=== PATIENT | female | born 1970 | race African-American/Black ===

== ENCOUNTER 2016-11-28 15:30 | Emergency (ER) | payer OTHER ==
[~2016-11-28] VITALS: Ht 157.5 cm; Wt 107.3 kg
[~2016-11-28 15:30] MED LIST: ALBU17AE27 IH; FLUO-191 PO; FURO40 PO; INSLAN SQ
[2016-11-28 15:47] LABS: GLUCOSE,POINT OF CARE 96 MG/DL (70-110)
[2016-11-28] MEDS ORDERED: HYDROCODONE/ACETAMINOPHEN 5-325 MG TABLET PO ONE (16:30)
[2016-11-28] MEDS ORDERED: METHOCARBAMOL 500 MG TABLET PO ONE (16:30)
[2016-11-28] MEDS ORDERED: KETOROLAC TROMETHAMINE 60 MG/2 ML VIAL IM ONE (16:30)
[2016-11-28 18:40] VITALS: BP 118/71
== END 2016-11-28 18:42 | disposition home or self-care (01) ==
LOC: EMS 15:34
DX: M25.512 Pain in left shoulder (principal); M79.2 Neuralgia and neuritis, unspecified; J45.909 Unspecified asthma, uncomplicated; E11.9 Type 2 diabetes mellitus without complications; I10 Essential (primary) hypertension; Z87.891 Personal history of nicotine dependence; Z79.2 Long term (current) use of antibiotics
CPT/HCPCS: 82962; 96372; 99283; J1885

== ENCOUNTER 2017-07-11 13:30 | Inpatient (IN) | payer OTHER ==
[~2017-07-11] VITALS: Ht 157.5 cm; Wt 107.9 kg
[2017-07-11 13:47] LABS: GLUCOSE,POINT OF CARE 69 MG/DL (70-110)
[2017-07-11] MEDS ORDERED: ALBUTEROL SULFATE 2.5 MG/0.5 ML NEB SOLUTION NEB ONE (14:30)
[2017-07-11] MEDS ORDERED: HYDROCODONE/ACETAMINOPHEN 10-325 MG TABLET PO ONE (14:30)
[2017-07-11] MEDS ORDERED: 0.9% SODIUM CHLORIDE 5 ML NEB SOLUTION NEB ONE (14:42)
[2017-07-11 15:04] LABS: ANION GAP 5 mmol/L (8-16); CALCIUM, TOTAL 8.3 mg/dL (8.8-10.5); CARBON DIOXIDE 26 mmol/L (22-29); CHLORIDE 105 mmol/L (98-107); CREATININE 0.92 mg/dL (0.60-1.30); GLOMERULAR FILTR. RATE CALC > 60 mL/min (>60); GLUCOSE,RANDOM 79 mg/dL (70-110); POTASSIUM 3.9 mmol/L (3.5-5.1); SODIUM SERUM 136 mmol/L (136-145); UREA NITROGEN, BLOOD 9 mg/dL (7-18)
[2017-07-11 15:10] LABS: HEMATOCRIT 26.1 % (36-46); HEMOGLOBIN 7.9 g/dL (12.0-16.0); MEAN CORPUSCULAR HEMOGLOBIN 18.2 pg (26.0-34.0); MEAN CORPUSCULAR HGB CONC 30.1 G/dL (31.0-37.0); MEAN CORPUSCULAR VOLUME 60 fL (80-100); PLATELET COUNT (AUTO) 251 K/uL (150-450); RED BLOOD CELL COUNT(AUTO) 4.32 MIL/uL (4.00-5.20); RED CELL DISTRIBUTION WIDTH 20.2 % (11.5-14.5)
[2017-07-11 15:18] LABS: PROTHROMBIN TIME 10.2 SEC (9.4-11.6)
[2017-07-11 15:27] LABS: ALANINE AMINOTRANSFERASE 32 U/L (12-78); ALBUMIN 3.1 g/dL (3.4-5.0); ALKALINE PHOSPHATASE 87 U/L (46-116); ASPARTATE AMINOTRANSFERASE 33 U/L (15-37); BILIRUBIN,TOTAL 0.2 mg/dL (0.1-1.0); CREATINE KINASE, TOTAL 200 U/L (26-192); TOTAL PROTEIN, SERUM 7.5 g/dL (6.4-8.2)
[2017-07-11 15:32] LABS: B-TYPE NATRIURETIC PEPTIDE 120 pg/mL (0-100)
[2017-07-11 15:48] LABS: CREATINE KINASE MB 0.8 ng/mL (0-5)
[2017-07-11] MEDS ORDERED: MethylPREDNISolone SOD SUCC 125 MG/2 ML VIAL IVP ONE (16:00)
[2017-07-11] MEDS ORDERED: LEVOFLOXACIN 500 MG/D5% WATER 100 ML IV ONE (16:00)
[2017-07-11 16:06] LABS: BAND NEUTROPHILS % (MANUAL) 8 % (1-5); BASOPHILS % (MANUAL) 1 % (0-2); EOSINOPHILS % (MANUAL) 2 % (1-6); LYMPHOCYTES % (MANUAL) 17 % (22-44); MONOCYTES % (MANUAL) 8 % (2-9); PLATELET MORPHOLOGY COMMENT LARGE PLTS PRESENT; SEGMENTED NEUTROPHILS % 64 % (40-70)
[2017-07-11] MEDS ORDERED: 0.9% SODIUM CHLORIDE 10 ML SYRINGE IVP PRN (18:30)
[2017-07-11] MEDS ORDERED: OxyCODONE HCL/ACETAMINOPHEN 5-325 MG TABLET PO PRN (18:30)
[2017-07-11] MEDS ORDERED: HYDROCODONE/ACETAMINOPHEN 5-325 MG TABLET PO PRN (18:30)
[2017-07-11] MEDS ORDERED: ACETAMINOPHEN 325 MG TABLET PO PRN (18:30)
[2017-07-11] MEDS ORDERED: ONDANSETRON HCL 4 MG/2 ML VIAL IVP PRN (18:30)
[2017-07-11 18:36] LABS: % IRON SATURATION 3.1 % (22-44)
[2017-07-11 18:44] LABS: RETICULOCYTE % (AUTO) 1.7 % (0.5-2.3)
[2017-07-11] MEDS ORDERED: INSULIN ASPART 100 UNITS/ML SQ PRN (18:45)
[2017-07-11] MEDS ORDERED: DEXTROSE 50%-WATER 25 GM/50 ML SYRINGE IVP PRN (18:45)
[2017-07-11 19:37] LABS: GLUCOSE,POINT OF CARE 145 MG/DL (70-110)
[2017-07-11 20:04] LABS: HEMOGLOBIN A1C 6.1 % (4.5-6.2)
[2017-07-11 20:06] LABS: C-REACTIVE PROTEIN QUANT 1.9 mg/dL (0.00-0.30)
[2017-07-11 20:30] VITALS: BP 145/60
[2017-07-11] MEDS: IPRATROPIUM BROMIDE 0.5 MG/2.5 ML NEB SOLUTION NEB SCH (20:30)
[2017-07-11] MEDS: ALBUTEROL SULFATE 2.5 MG/0.5 ML NEB SOLUTION NEB SCH (20:30)
[2017-07-11] MEDS: INSULIN GLARGINE,HUM.REC.ANLOG 100 UNITS/ML SQ SCH (20:46)
[2017-07-11] MEDS: INSULIN ASPART 100 UNITS/ML SQ PRN (20:46)
[2017-07-11] MEDS: MethylPREDNISolone SOD SUCC 125 MG/2 ML VIAL IVP SCH (23:26)
[2017-07-11] MEDS: FUROSEMIDE 40 MG TABLET PO SCH (23:27)
[2017-07-11] MEDS: GuaiFENesin SR 600 MG ER TABLET PO SCH (23:27)
[2017-07-11 23:46] VITALS: BP 131/89
[2017-07-12] MEDS ORDERED: PNEUMOCOCCAL VACCINE POLYVALENT 0.5 ML VIAL [PPSV23] IM ONE (01:15)
[2017-07-12] MEDS ORDERED: INFLUENZA VIRUS VACCINE QVS 2017-18 (3YR+)/PF 60 MCG/0.5 ML SYRINGE IM ONE (01:15)
[2017-07-12] MEDS: IPRATROPIUM BROMIDE 0.5 MG/2.5 ML NEB SOLUTION NEB SCH (01:36)
[2017-07-12] MEDS: ALBUTEROL SULFATE 2.5 MG/0.5 ML NEB SOLUTION NEB SCH (01:36)
[2017-07-12 01:55] LABS: AMPHET/METH SCREEN,URINE NEGATIVE (NEGATIVE); BARBITURATE SCREEN, URINE NEGATIVE (NEGATIVE); BENZODIAZEPINES SCREEN,URINE NEGATIVE (NEGATIVE); CANNABINOID SCREEN,URINE NEGATIVE (NEGATIVE); COCAINE SCREEN,URINE NEGATIVE (NEGATIVE); METHADONE SCREEN, URINE NEGATIVE (NEGATIVE); OPIATE SCREEN,URINE POSITIVE (NEGATIVE)
[2017-07-12 01:56] LABS: PHENCYCLIDINE SCREEN,URINE NEGATIVE (NEGATIVE)
[2017-07-12 03:33] VITALS: BP 112/65
[2017-07-12] MEDS: INSULIN ASPART 100 UNITS/ML SQ SCH ×4 (06:30→17:30)
[2017-07-12] MEDS: INSULIN ASPART 100 UNITS/ML SQ PRN ×2 (06:38→17:55)
[2017-07-12] MEDS: MethylPREDNISolone SOD SUCC 125 MG/2 ML VIAL IVP SCH ×2 (07:57→17:00)
[2017-07-12] MEDS: GuaiFENesin SR 600 MG ER TABLET PO SCH ×2 (07:57→21:29)
[2017-07-12] MEDS: FLUoxetine HCL 20 MG CAPSULE PO SCH (07:57)
[2017-07-12] MEDS: FUROSEMIDE 40 MG TABLET PO SCH ×2 (07:57→21:29)
[2017-07-12 08:00] LABS: HEMATOCRIT 26.3 % (36-46); MEAN CORPUSCULAR HEMOGLOBIN 18.4 pg (26.0-34.0); MEAN CORPUSCULAR HGB CONC 30.6 G/dL (31.0-37.0); MEAN CORPUSCULAR VOLUME 60 fL (80-100); PLATELET COUNT (AUTO) 261 K/uL (150-450); RED BLOOD CELL COUNT(AUTO) 4.37 MIL/uL (4.00-5.20); RED CELL DISTRIBUTION WIDTH 20.1 % (11.5-14.5)
[2017-07-12 08:05] VITALS: BP 129/77
[2017-07-12 08:09] LABS: ALANINE AMINOTRANSFERASE 30 U/L (12-78); ALBUMIN 3.3 g/dL (3.4-5.0); ALKALINE PHOSPHATASE 88 U/L (46-116); ANION GAP 11 mmol/L (8-16); ASPARTATE AMINOTRANSFERASE 29 U/L (15-37); BILIRUBIN,TOTAL 0.2 mg/dL (0.1-1.0); CALCIUM, TOTAL 9.1 mg/dL (8.8-10.5); CARBON DIOXIDE 23 mmol/L (22-29); CHLORIDE 104 mmol/L (98-107); CREATININE 0.99 mg/dL (0.60-1.30); GLOMERULAR FILTR. RATE CALC > 60 mL/min (>60); GLUCOSE,RANDOM 157 mg/dL (70-110); SODIUM SERUM 138 mmol/L (136-145); TOTAL PROTEIN, SERUM 8.7 g/dL (6.4-8.2); UREA NITROGEN, BLOOD 13 mg/dL (7-18)
[2017-07-12 09:59] LABS: INFLUENZA TYPE A NEGATIVE FOR TYPE A (NEGATIVE); INFLUENZA TYPE B NEGATIVE FOR TYPE B (NEGATIVE)
[2017-07-12 10:28] LABS: BAND NEUTROPHILS % (MANUAL) 1 % (1-5); LYMPHOCYTES % (MANUAL) 16 % (22-44); MONOCYTES % (MANUAL) 2 % (2-9); SEGMENTED NEUTROPHILS % 81 % (40-70)
[2017-07-12 10:30] LABS: PLATELET MORPHOLOGY COMMENT GIANT PLTS PRESENT
[2017-07-12] MEDS: HYDROCODONE/ACETAMINOPHEN 5-325 MG TABLET PO PRN ×2 (11:13→19:46)
[2017-07-12 11:29] VITALS: BP 128/74
[2017-07-12] MEDS ORDERED: LEVOFLOXACIN 500 MG/D5% WATER 100 ML IV SCH (13:00)
[2017-07-12 14:24] LABS: GLUCOMETER DEV NAME(LOC) 5S 2N; GLUCOSE,POINT OF CARE 140 MG/DL (70-110)
[2017-07-12 14:27] LABS: GLUCOMETER DEV NAME(LOC) 5S 2N; GLUCOSE,POINT OF CARE 157 MG/DL (70-110)
[2017-07-12 15:34] VITALS: BP 114/74
[2017-07-12] MEDS: LEVOFLOXACIN 500 MG TABLET PO SCH (17:01)
[2017-07-12] MEDS: FERROUS SULFATE 325 MG EC TABLET PO SCH (17:52)
[2017-07-12] MEDS: SENNA 187 MG TABLET PO SCH (19:46)
[2017-07-12 20:28] VITALS: BP 132/76
[2017-07-12] MEDS: INSULIN GLARGINE,HUM.REC.ANLOG 100 UNITS/ML SQ SCH (21:00)
[2017-07-12 21:48] LABS: GLUCOMETER DEV NAME(LOC) 5S 2N; GLUCOSE,POINT OF CARE 143 MG/DL (70-110)
[2017-07-12 23:57] VITALS: BP 114/71
[2017-07-13] MEDS: MethylPREDNISolone SOD SUCC 125 MG/2 ML VIAL IVP SCH ×3 (00:06→17:01)
[2017-07-13] MEDS: HYDROCODONE/ACETAMINOPHEN 5-325 MG TABLET PO PRN ×3 (00:09→13:08)
[2017-07-13 05:30] VITALS: BP 119/59
[2017-07-13] MEDS: INSULIN ASPART 100 UNITS/ML SQ PRN (05:42)
[2017-07-13] MEDS: INSULIN ASPART 100 UNITS/ML SQ SCH ×3 (07:30→17:30)
[2017-07-13] MEDS: FUROSEMIDE 40 MG TABLET PO SCH ×2 (08:07→21:00)
[2017-07-13] MEDS: FERROUS SULFATE 325 MG EC TABLET PO SCH (08:07)
[2017-07-13] MEDS: GuaiFENesin SR 600 MG ER TABLET PO SCH ×2 (08:08→21:34)
[2017-07-13] MEDS: FLUoxetine HCL 20 MG CAPSULE PO SCH (08:08)
[2017-07-13 08:12] LABS: GLUCOMETER DEV NAME(LOC) 5S 2N; GLUCOSE,POINT OF CARE 237 MG/DL (70-110)
[2017-07-13] MEDS: LEVOFLOXACIN 500 MG TABLET PO SCH (10:44)
[2017-07-13 13:08] VITALS: BP 130/80
[2017-07-13 15:52] VITALS: BP 102/58
[2017-07-13 20:21] VITALS: BP 93/44
[2017-07-13] MEDS: INSULIN GLARGINE,HUM.REC.ANLOG 100 UNITS/ML SQ SCH (21:00)
[2017-07-13] MEDS ORDERED: MELATONIN 3 MG TABLET PO SCH (21:00)
[2017-07-13 21:29] VITALS: BP 119/69
[2017-07-13] MEDS: SENNA 187 MG TABLET PO SCH (21:34)
[2017-07-14 00:45] VITALS: BP 110/54
[2017-07-14] MEDS: MethylPREDNISolone SOD SUCC 125 MG/2 ML VIAL IVP SCH ×2 (00:53→08:00)
[2017-07-14 03:40] VITALS: BP 123/62
[2017-07-14] MEDS: INSULIN ASPART 100 UNITS/ML SQ PRN (05:47)
[2017-07-14] MEDS: INSULIN ASPART 100 UNITS/ML SQ SCH ×2 (07:30→11:30)
[2017-07-14 07:49] LABS: GLUCOMETER DEV NAME(LOC) 5S 2N; GLUCOSE,POINT OF CARE 129 MG/DL (70-110)
[2017-07-14 07:49] LABS: GLUCOMETER DEV NAME(LOC) 5S 2N; GLUCOSE,POINT OF CARE 121 MG/DL (70-110)
[2017-07-14 07:49] LABS: GLUCOMETER DEV NAME(LOC) 5S 2N; GLUCOSE,POINT OF CARE 142 MG/DL (70-110)
[2017-07-14 07:50] LABS: GLUCOMETER DEV NAME(LOC) 5S 2N; GLUCOSE,POINT OF CARE 191 MG/DL (70-110)
[2017-07-14] MEDS: FERROUS SULFATE 325 MG EC TABLET PO SCH (08:33)
[2017-07-14] MEDS: GuaiFENesin SR 600 MG ER TABLET PO SCH (08:33)
[2017-07-14] MEDS: FUROSEMIDE 40 MG TABLET PO SCH ×2 (08:34→09:36)
[2017-07-14] MEDS: FLUoxetine HCL 20 MG CAPSULE PO SCH (08:34)
[2017-07-14] MEDS: LEVOFLOXACIN 500 MG TABLET PO SCH (09:36)
[2017-07-14 09:52] VITALS: BP 121/63
[2017-07-14] MEDS: HYDROCODONE/ACETAMINOPHEN 5-325 MG TABLET PO PRN (11:02)
[2017-07-14 11:26] VITALS: BP 120/79
[2017-07-14] MEDS ORDERED: LEVO500 PO (12:21)
[2017-07-14] MEDS ORDERED: SENN-175 PO (12:22)
[2017-07-14] MEDS ORDERED: HYDR-309 PO (12:24)
[2017-07-14] MEDS ORDERED: PROMVCC5L PO (12:24)
[2017-07-14 19:49] LABS: GLUCOMETER DEV NAME(LOC) 5S 1L; GLUCOSE,POINT OF CARE 159 MG/DL (70-110)
[2017-07-14 19:49] LABS: GLUCOMETER DEV NAME(LOC) 5S 1L; GLUCOSE,POINT OF CARE 132 MG/DL (70-110)
[2017-07-14 19:49] LABS: GLUCOMETER DEV NAME(LOC) 5S 1L; GLUCOSE,POINT OF CARE 140 MG/DL (70-110)
[2017-07-15 07:56] LABS: GLUCOMETER DEV NAME(LOC) 5S 2N; GLUCOSE,POINT OF CARE 113 MG/DL (70-110)
== END 2017-07-14 14:40 | disposition home or self-care (01) | DRG 141 ==
LOC: EMS 13:32 → 5N 18:33 → 5S 19:56
PROVIDERS: ADMIT Hospitalist; ATTEND Hospitalist
PROC: 3E0234Z Introduction of Serum, Toxoid and Vaccine into Muscle, Percutaneous Approach (ICD-10-PCS; principal; 2017-07-14)
PROC: 3E0234Z Introduction of Serum, Toxoid and Vaccine into Muscle, Percutaneous Approach (ICD-10-PCS; 2017-07-14)
DX: J45.901 Unspecified asthma with (acute) exacerbation (principal); I11.0 Hypertensive heart disease with heart failure; Z93.0 Tracheostomy status; I50.9 Heart failure, unspecified; Z68.42 Body mass index [BMI] 45.0-49.9, adult; E11.9 Type 2 diabetes mellitus without complications; D50.9 Iron deficiency anemia, unspecified; F32.9 Major depressive disorder, single episode, unspecified; G89.29 Other chronic pain; F17.210 Nicotine dependence, cigarettes, uncomplicated; E66.01 Morbid (severe) obesity due to excess calories; R51 Headache; M54.5 Low back pain; Z98.891 History of uterine scar from previous surgery; Z79.899 Other long term (current) drug therapy; Z23 Encounter for immunization
CPT/HCPCS: 80307; 82270; 82962; 83036; 83540; 83550; 85045; 85651; 86140; 87804; 90471; 93005; 93306; 94640; 96374; 96375; 99285; J1815; J1956; J2930

== ENCOUNTER 2017-07-15 12:05 | Emergency (ER) | payer OTHER ==
[~2017-07-15] VITALS: Ht 157.5 cm; Wt 105.5 kg
[~2017-07-15 12:05] MED LIST changes: +HYDR-309 PO; -INSLAN SQ; +LEVO500 PO; +PROMVCC5L PO; +SENN-175 PO
[2017-07-15 12:15] VITALS: BP 124/94
== END 2017-07-15 15:02 | disposition left against medical advice (07) ==
LOC: EMS 12:07
DX: R42 Dizziness and giddiness (principal); J45.909 Unspecified asthma, uncomplicated; I10 Essential (primary) hypertension; E11.9 Type 2 diabetes mellitus without complications; Z53.21 Procedure and treatment not carried out due to patient leaving prior to being seen by health care provider

== ENCOUNTER 2017-07-15 16:17 | Inpatient (IN) | payer OTHER ==
[~2017-07-15] VITALS: Ht 157.5 cm; Wt 111.9 kg
[2017-07-15] MEDS ORDERED: DEXAMETHASONE SOD PHOS 4 MG/ML 5 ML VIAL IVP ONE (18:45)
[2017-07-15] MEDS ORDERED: IPRATROPIUM BROMIDE 0.5 MG/2.5 ML NEB SOLUTION NEB ONE (18:45)
[2017-07-15] MEDS ORDERED: MORPHINE SULFATE 4 MG/ML SYRINGE IVP ONE (18:45)
[2017-07-15] MEDS ORDERED: SODIUM CHLORIDE 0.9% 1,000 ML IV ONE (18:45)
[2017-07-15] MEDS ORDERED: ALBUTEROL SULFATE 5 MG/ML 20 ML NEB SOLN [BULK] NEB ONE (18:45)
[2017-07-15] MEDS ORDERED: ONDANSETRON HCL 4 MG/2 ML VIAL IVP ONE (18:45)
[2017-07-15] MEDS ORDERED: 0.9% SODIUM CHLORIDE 15 ML NEB SOLUTION NEB ONE (18:58)
[2017-07-15 19:17] LABS: HEMOGLOBIN 9.4 g/dL (12.0-16.0); MEAN CORPUSCULAR HEMOGLOBIN 17.9 pg (26.0-34.0); MEAN CORPUSCULAR HGB CONC 29.4 G/dL (31.0-37.0); MEAN CORPUSCULAR VOLUME 61 fL (80-100); PLATELET COUNT (AUTO) 213 K/uL (150-450); RED BLOOD CELL COUNT(AUTO) 5.27 MIL/uL (4.00-5.20); RED CELL DISTRIBUTION WIDTH 20.3 % (11.5-14.5); WHITE BLOOD COUNT (AUTO) 7.6 K/uL (4.5-11.0)
[2017-07-15 19:26] LABS: ANION GAP 11 mmol/L (8-16); CALCIUM, TOTAL 8.8 mg/dL (8.8-10.5); CARBON DIOXIDE 28 mmol/L (22-29); CHLORIDE 100 mmol/L (98-107); CREATININE 0.99 mg/dL (0.60-1.30); GLOMERULAR FILTR. RATE CALC > 60 mL/min (>60); POTASSIUM 3.1 mmol/L (3.5-5.1); SODIUM SERUM 139 mmol/L (136-145); UREA NITROGEN, BLOOD 22 mg/dL (7-18)
[2017-07-15 19:31] LABS: ALANINE AMINOTRANSFERASE 35 U/L (12-78); ALBUMIN 3.5 g/dL (3.4-5.0); ASPARTATE AMINOTRANSFERASE 27 U/L (15-37); BILIRUBIN,TOTAL 0.2 mg/dL (0.1-1.0); TOTAL PROTEIN, SERUM 9.2 g/dL (6.4-8.2)
[2017-07-15 19:43] LABS: LYMPHOCYTES % (MANUAL) 53 % (22-44); TOTAL CELLS COUNTED 100
[2017-07-15 19:45] LABS: RBC MORPHOLOGY COMMENT ABNORMAL R
[2017-07-15 19:47] LABS: B-TYPE NATRIURETIC PEPTIDE 18 pg/mL (0-100)
[2017-07-15] MEDS ORDERED: 0.9% SODIUM CHLORIDE 10 ML SYRINGE IVP PRN (20:00)
[2017-07-15] MEDS ORDERED: ONDANSETRON HCL 4 MG/2 ML VIAL IVP PRN (20:00)
[2017-07-15] MEDS ORDERED: ACETAMINOPHEN 325 MG TABLET PO PRN ×2 (20:00→22:15)
[2017-07-15] MEDS ORDERED: FUROSEMIDE 40 MG/4 ML VIAL IVP ONE (20:15)
[2017-07-15 20:51] VITALS: BP 104/67
[2017-07-15] MEDS ORDERED: IBUPROFEN 600 MG TABLET PO PRN (22:15)
[2017-07-15] MEDS ORDERED: POTASSIUM CHLORIDE 20 MEQ ER TABLET PO ONE (22:15)
[2017-07-15] MEDS ORDERED: DEXTROSE 50%-WATER 25 GM/50 ML SYRINGE IVP PRN (22:15)
[2017-07-15] MEDS ORDERED: ALBUTEROL SULFATE 2.5 MG/0.5 ML NEB SOLUTION NEB PRN (22:15)
[2017-07-15] MEDS ORDERED: IPRATROPIUM BROMIDE 0.5 MG/2.5 ML NEB SOLUTION NEB PRN (22:15)
[2017-07-15] MEDS: KETOROLAC TROMETHAMINE 15 MG/ML VIAL IVP PRN (23:37)
[2017-07-15] MEDS: MethylPREDNISolone SOD SUCC 40 MG/ML VIAL IVP SCH (23:37)
[2017-07-16] VITALS (9 sets, daily range): BP systolic 90–122; BP diastolic 43–76
[2017-07-16] MEDS: INSULIN ASPART 100 UNITS/ML SQ PRN ×2 (06:08→18:13)
[2017-07-16 06:20] LABS: BASOPHILS % (AUTO) 0.1 % (0.0-2.0); EOSINOPHILS % (AUTO) 0 % (1.0-6.0); HEMATOCRIT 28.3 % (36-46); HEMOGLOBIN 8.5 g/dL (12.0-16.0); LYMPHOCYTES # (AUTO) 0.7 K/uL (1.0-4.8); LYMPHOCYTES % (AUTO) 10.4 % (22.0-44.0); MEAN CORPUSCULAR HEMOGLOBIN 18.3 pg (26.0-34.0); MEAN CORPUSCULAR HGB CONC 29.8 G/dL (31.0-37.0); MEAN CORPUSCULAR VOLUME 61 fL (80-100); MONOCYTES # (AUTO) 0.1 K/uL (0.1-1.0); MONOCYTES % (AUTO) 1.8 % (2.0-9.0); NEUTROPHILS # (AUTO) 5.9 K/uL (1.8-7.7); PLATELET COUNT (AUTO) 266 K/uL (150-450); RED BLOOD CELL COUNT(AUTO) 4.62 MIL/uL (4.00-5.20); RED CELL DISTRIBUTION WIDTH 20.1 % (11.5-14.5); WHITE BLOOD COUNT (AUTO) 6.8 K/uL (4.5-11.0)
[2017-07-16 06:31] LABS: CALCIUM, TOTAL 8.7 mg/dL (8.8-10.5); CREATININE 1.22 mg/dL (0.60-1.30); POTASSIUM 4.1 mmol/L (3.5-5.1)
[2017-07-16 06:42] LABS: NEUTROPHILS % (AUTO) 87.7 % (40.0-70.0)
[2017-07-16] MEDS: MethylPREDNISolone SOD SUCC 40 MG/ML VIAL IVP SCH ×2 (08:32→16:43)
[2017-07-16] MEDS: OMEPRAZOLE 20 MG CAPSULE PO SCH (08:33)
[2017-07-16] MEDS: ENOXAPARIN SODIUM 40 MG/0.4 ML PF SYRINGE SQ SCH (08:33)
[2017-07-16] MEDS: KETOROLAC TROMETHAMINE 15 MG/ML VIAL IVP PRN ×2 (08:36→16:53)
[2017-07-16] MEDS ORDERED: IPRATROPIUM BROMIDE 0.5 MG/2.5 ML NEB SOLUTION NEB PRN (09:00)
[2017-07-16] MEDS ORDERED: ALBUTEROL SULFATE 2.5 MG/0.5 ML NEB SOLUTION NEB PRN (09:00)
[2017-07-16] MEDS ORDERED: SODIUM CHLORIDE 0.9% 500 ML IV ONE (09:00)
[2017-07-16 09:50] LABS: RBC MORPHOLOGY COMMENT ABNORMAL RBC MORPH
[2017-07-16 09:57] LABS: GLUCOSE, URINE (UA) 500 mg/dL (NEGATIVE); KETONES,URINE NEGATIVE (NEGATIVE); LEUKOCYTE ESTERASE ,URINE NEGATIVE (NEGATIVE); OCCULT BLOOD,URINE NEGATIVE (NEGATIVE); PH,URINE 5.5 (5.0-8.0); PROTEIN,URINE NEGATIVE (NEGATIVE)
[2017-07-16 10:02] LABS: ADD UA MICROSCOPIC YES; APPEARANCE,URINE HAZY (CLEAR); RBC,URINE None Seen /HPF (0-2)
[2017-07-16 10:03] LABS: WBC,URINE 0-2 /HPF (0-5)
[2017-07-16 10:04] LABS: SQUAMOUS EPITHELIAL CELL,UR Moderate /LPF (None Seen)
[2017-07-16] MEDS ORDERED: GuaiFENesin/D-METHORPHAN [SUGAR-FREE] 200-20MG/10 ML SYRUP UDCUP PO PRN (12:15)
[2017-07-16] MEDS: SENNA 187 MG TABLET PO SCH (22:47)
[2017-07-17] VITALS (8 sets, daily range): BP systolic 94–141; BP diastolic 52–80
[2017-07-17] MEDS: MethylPREDNISolone SOD SUCC 40 MG/ML VIAL IVP SCH ×3 (01:33→16:47)
[2017-07-17] MEDS: INSULIN ASPART 100 UNITS/ML SQ PRN ×4 (06:05→21:20)
[2017-07-17 06:13] LABS: EOSINOPHILS % (AUTO) 0 % (1.0-6.0); HEMATOCRIT 27.9 % (36-46); HEMOGLOBIN 8.4 g/dL (12.0-16.0); LYMPHOCYTES % (AUTO) 14.5 % (22.0-44.0); MEAN CORPUSCULAR HEMOGLOBIN 18.4 pg (26.0-34.0); MEAN CORPUSCULAR HGB CONC 30.2 G/dL (31.0-37.0); MEAN CORPUSCULAR VOLUME 61 fL (80-100); MONOCYTES # (AUTO) 0.3 K/uL (0.1-1.0); MONOCYTES % (AUTO) 4.7 % (2.0-9.0); NEUTROPHILS # (AUTO) 5.6 K/uL (1.8-7.7); NEUTROPHILS % (AUTO) 80.8 % (40.0-70.0); PLATELET COUNT (AUTO) 249 K/uL (150-450); RED BLOOD CELL COUNT(AUTO) 4.57 MIL/uL (4.00-5.20); RED CELL DISTRIBUTION WIDTH 20.3 % (11.5-14.5)
[2017-07-17 06:29] LABS: ANION GAP 5 mmol/L (8-16); CALCIUM, TOTAL 8.8 mg/dL (8.8-10.5); CARBON DIOXIDE 27 mmol/L (22-29); CHLORIDE 103 mmol/L (98-107); CREATININE 0.98 mg/dL (0.60-1.30); GLOMERULAR FILTR. RATE CALC > 60 mL/min (>60); PHOSPHORUS 3.4 mg/dL (2.5-4.9); POTASSIUM 4.5 mmol/L (3.5-5.1); SODIUM SERUM 135 mmol/L (136-145); UREA NITROGEN, BLOOD 19 mg/dL (7-18)
[2017-07-17] MEDS: FLUoxetine HCL 20 MG CAPSULE PO SCH ×2 (07:57→08:00)
[2017-07-17] MEDS: OMEPRAZOLE 20 MG CAPSULE PO SCH (07:57)
[2017-07-17] MEDS: ENOXAPARIN SODIUM 40 MG/0.4 ML PF SYRINGE SQ SCH (07:57)
[2017-07-17 09:38] LABS: RBC MORPHOLOGY COMMENT ABNORMAL RBC MORPH
[2017-07-17] MEDS ORDERED: SODIUM CHLORIDE 0.9% 1,000 ML IV ONE (16:00)
[2017-07-17] MEDS: KETOROLAC TROMETHAMINE 15 MG/ML VIAL IVP PRN (16:56)
[2017-07-17 19:58] LABS: GLUCOSE COMMENT 1 Received Meds; GLUCOSE,POINT OF CARE 148 MG/DL (70-110)
[2017-07-17 19:58] LABS: GLUCOSE COMMENT 1 Received Meds; GLUCOSE,POINT OF CARE 147 MG/DL (70-110)
[2017-07-17 19:58] LABS: GLUCOSE COMMENT 1 Received Meds; GLUCOSE,POINT OF CARE 197 MG/DL (70-110)
[2017-07-17 19:58] LABS: GLUCOSE COMMENT 1 Received Meds; GLUCOSE,POINT OF CARE 170 MG/DL (70-110)
[2017-07-17 19:58] LABS: GLUCOSE,POINT OF CARE 136 MG/DL (70-110)
[2017-07-17 19:58] LABS: GLUCOSE,POINT OF CARE 122 MG/DL (70-110)
[2017-07-17 19:58] LABS: GLUCOSE COMMENT 1 Received Meds; GLUCOSE,POINT OF CARE 147 MG/DL (70-110)
[2017-07-17] MEDS: SENNA 187 MG TABLET PO SCH (21:19)
[2017-07-18] MEDS: MethylPREDNISolone SOD SUCC 40 MG/ML VIAL IVP SCH ×4 (00:24→23:54)
[2017-07-18 03:52] LABS: GLUCOSE COMMENT 1 Received Meds; GLUCOSE,POINT OF CARE 186 MG/DL (70-110)
[2017-07-18 04:28] VITALS: BP 119/69
[2017-07-18] MEDS: INSULIN ASPART 100 UNITS/ML SQ PRN ×4 (06:09→21:25)
[2017-07-18 07:30] VITALS: BP 116/62
[2017-07-18 08:03] LABS: GLUCOSE COMMENT 1 Received Meds; GLUCOSE,POINT OF CARE 141 MG/DL (70-110)
[2017-07-18] MEDS: OMEPRAZOLE 20 MG CAPSULE PO SCH (08:24)
[2017-07-18] MEDS: ENOXAPARIN SODIUM 40 MG/0.4 ML PF SYRINGE SQ SCH (08:24)
[2017-07-18] MEDS: FLUoxetine HCL 20 MG CAPSULE PO SCH (08:25)
[2017-07-18 12:00] VITALS: BP 112/65
[2017-07-18 13:35] LABS: GLUCOSE COMMENT 1 Received Meds; GLUCOSE,POINT OF CARE 226 MG/DL (70-110)
[2017-07-18 20:13] VITALS: BP 113/57
[2017-07-18] MEDS: SENNA 187 MG TABLET PO SCH (21:23)
[2017-07-18 23:57] VITALS: BP 109/69
[2017-07-19 00:32] LABS: GLUCOSE,POINT OF CARE 146 MG/DL (70-110)
[2017-07-19 00:38] LABS: GLUCOSE COMMENT 1 Received Meds; GLUCOSE,POINT OF CARE 178 MG/DL (70-110)
[2017-07-19] MEDS: INSULIN ASPART 100 UNITS/ML SQ PRN (05:59)
[2017-07-19 06:03] VITALS: BP 125/83
[2017-07-19] MEDS: MethylPREDNISolone SOD SUCC 40 MG/ML VIAL IVP SCH (08:00)
[2017-07-19 08:10] VITALS: BP 130/80
[2017-07-19] MEDS: OMEPRAZOLE 20 MG CAPSULE PO SCH (08:51)
[2017-07-19] MEDS: ENOXAPARIN SODIUM 40 MG/0.4 ML PF SYRINGE SQ SCH (08:51)
[2017-07-19] MEDS: FLUoxetine HCL 20 MG CAPSULE PO SCH (09:00)
[2017-07-19 11:34] VITALS: BP 90/56
[2017-07-19 17:29] LABS: ORGANISM ID Not indicated.
[2017-07-20 19:43] LABS: GLUCOSE,POINT OF CARE 103 MG/DL (70-110)
[2017-07-20 19:43] LABS: GLUCOSE,POINT OF CARE 128 MG/DL (70-110)
[2017-07-22 17:10] LABS: COCCI IGG TITER COMP.FIX-KERN <1:2; COCCIOIDES AB IGG (ID)-KERN Non Reactive; COCCIOIDES AB IGM (ID)-KERN Non Reactive
== END 2017-07-19 15:45 | disposition home or self-care (01) | DRG 140 ==
LOC: EMS 16:19 → 5S 20:09
PROVIDERS: ADMIT Hospitalist; ATTEND Hospitalist
DX: J44.1 Chronic obstructive pulmonary disease with (acute) exacerbation (principal); J18.9 Pneumonia, unspecified organism; I95.89 Other hypotension; E11.649 Type 2 diabetes mellitus with hypoglycemia without coma; I11.0 Hypertensive heart disease with heart failure; Z93.0 Tracheostomy status; I50.9 Heart failure, unspecified; Z68.41 Body mass index [BMI] 40.0-44.9, adult; E66.01 Morbid (severe) obesity due to excess calories; E87.6 Hypokalemia; E78.5 Hyperlipidemia, unspecified; F17.210 Nicotine dependence, cigarettes, uncomplicated; I95.1 Orthostatic hypotension; Z82.49 Family history of ischemic heart disease and other diseases of the circulatory system; Z83.3 Family history of diabetes mellitus; F45.8 Other somatoform disorders
CPT/HCPCS: 71250; 82533; 82962; 83735; 84100; 84443; 85651; 86140; 86171; 87040; 87081; 87101; 87449; 87899; 93005; 94644; 96361; 96374; 96375; 97161; 97530; 99285; J1100; J1650; J1885; J1940; J2270; J2405; J2920; J7030; J7040

== ENCOUNTER 2017-10-07 17:15 | Emergency (ER) | payer OTHER ==
[~2017-10-07] VITALS: Ht 157.5 cm; Wt 111.4 kg
[~2017-10-07 17:15] MED LIST changes: -ALBU17AE27 IH; -FURO40 PO
[2017-10-07 17:27] LABS: GLUCOSE,POINT OF CARE 138 MG/DL (70-110)
[2017-10-08] MEDS ORDERED: CefTRIAXone SODIUM 1 GM/VIAL IM ONE (00:15)
[2017-10-08] MEDS ORDERED: PROMETHAZINE HCL 25 MG/ML VIAL IM ONE (00:15)
[2017-10-08] MEDS ORDERED: LIDOCAINE HCL/PF 1% 2 ML VIAL IM ONE (00:15)
[2017-10-08] MEDS ORDERED: HYDROmorphone 2 MG/ML SYRINGE IM ONE (00:15)
[2017-10-08 01:31] VITALS: BP 125/71
== END 2017-10-08 01:34 | disposition home or self-care (01) ==
LOC: EMS 17:20
DX: K04.7 Periapical abscess without sinus (principal); J45.909 Unspecified asthma, uncomplicated; E11.9 Type 2 diabetes mellitus without complications; I10 Essential (primary) hypertension; Z87.891 Personal history of nicotine dependence
CPT/HCPCS: 82962; 96372; 99284; J0696; J1170; J2550; J3490

== ENCOUNTER 2019-06-22 05:19 | Emergency (ER) | payer OTHER ==
[~2019-06-22] VITALS: Ht 157.5 cm; Wt 136.4 kg
[~2019-06-22 05:19] MED LIST changes: -LEVO500 PO; -PROMVCC5L PO; -SENN-175 PO; +SENN-176 PO
[2019-06-22] MEDS ORDERED: ALBU1.252 IH (05:28)
[2019-06-22] MEDS ORDERED: KETOROLAC TROMETHAMINE 60 MG/2 ML VIAL IM ONE (06:15)
[2019-06-22] MEDS ORDERED: OxyCODONE HCL/ACETAMINOPHEN 5-325 MG TABLET PO ONE (06:15)
[2019-06-22 07:17] VITALS: BP 148/75
== END 2019-06-22 08:02 | disposition home or self-care (01) ==
LOC: EMS 05:19
DX: S63.502A Unspecified sprain of left wrist, initial encounter (principal); J45.909 Unspecified asthma, uncomplicated; F32.9 Major depressive disorder, single episode, unspecified; E11.9 Type 2 diabetes mellitus without complications; I10 Essential (primary) hypertension; F17.210 Nicotine dependence, cigarettes, uncomplicated; G89.29 Other chronic pain; X58.XXXA Exposure to other specified factors, initial encounter; Y93.89 Activity, other specified; Y92.89 Other specified places as the place of occurrence of the external cause; Y99.8 Other external cause status
CPT/HCPCS: 29125; 73130; 81025; 96372; 99283; J1885

== ENCOUNTER 2021-04-27 13:30 | Emergency (ER) | payer OTHER ==
[~2021-04-27] VITALS: Ht 157.5 cm; Wt 124.5 kg
[~2021-04-27 13:30] MED LIST changes: +ALBU1.252 IH; -SENN-176 PO; +SENN-277 PO
[2021-04-27 18:58] LABS: BASOPHILS % (AUTO) 0.6 % (0.0-2.0); EOSINOPHILS % (AUTO) 0.9 % (1.0-6.0); HEMATOCRIT 42.2 % (36-46); HEMOGLOBIN 13.3 g/dL (12.0-16.0); LYMPHOCYTES # (AUTO) 1.1 K/uL (1.0-4.8); LYMPHOCYTES % (AUTO) 42.6 % (22.0-44.0); MEAN CORPUSCULAR HEMOGLOBIN 25.4 pg (26.0-34.0); MEAN CORPUSCULAR HGB CONC 31.4 G/dL (31.0-37.0); MEAN CORPUSCULAR VOLUME 81 fL (80-100); MONOCYTES # (AUTO) 0.4 K/uL (0.1-1.0); NEUTROPHILS # (AUTO) 1.1 K/uL (1.8-7.7); NEUTROPHILS % (AUTO) 40.9 % (40.0-70.0); PLATELET COUNT (AUTO) 159 K/uL (150-450); RED BLOOD CELL COUNT(AUTO) 5.23 MIL/uL (4.00-5.20); RED CELL DISTRIBUTION WIDTH 16.2 % (11.5-14.5)
[2021-04-27 19:17] LABS: ANION GAP 8 mmol/L (8-16); CALCIUM, TOTAL 8.7 mg/dL (8.8-10.5); CARBON DIOXIDE 27 mmol/L (22-29); CHLORIDE 104 mmol/L (98-107); CREATININE 0.93 mg/dL (0.60-1.30); GLOMERULAR FILTR. RATE CALC > 60 mL/min (>60); GLUCOSE,RANDOM 83 mg/dL (70-110); POTASSIUM 3.9 mmol/L (3.5-5.1); SODIUM SERUM 139 mmol/L (136-145); UREA NITROGEN, BLOOD 8 mg/dL (7-18)
[2021-04-27 19:23] LABS: ALANINE AMINOTRANSFERASE 33 U/L (12-78); ALBUMIN 3.6 g/dL (3.4-5.0); ALKALINE PHOSPHATASE 92 U/L (46-116); ASPARTATE AMINOTRANSFERASE 30 U/L (15-37); BILIRUBIN,TOTAL 0.2 mg/dL (0.1-1.0); TOTAL PROTEIN, SERUM 8.3 g/dL (6.4-8.2)
[2021-04-27 19:29] LABS: COVID AG,FIA SOURCE NASOPHARYNGEAL
[2021-04-27] MEDS ORDERED: KETOROLAC TROMETHAMINE 30 MG/ML VIAL IVP ONE (19:30)
[2021-04-27] MEDS ORDERED: ACETAMINOPHEN 500 MG TABLET PO ONE (19:30)
[2021-04-27] MEDS ORDERED: LIDOCAINE 5% TRANSDERMAL PATCH TD ONE (19:30)
[2021-04-27 19:35] LABS: B-TYPE NATRIURETIC PEPTIDE 37 pg/mL (0-100)
[2021-04-27 22:30] VITALS: BP 119/61
== END 2021-04-27 23:09 | disposition home or self-care (01) ==
LOC: EMS 13:30
DX: U07.1 COVID-19 (principal); M79.10 Myalgia, unspecified site; R50.9 Fever, unspecified; J45.909 Unspecified asthma, uncomplicated; F32.9 Major depressive disorder, single episode, unspecified; E11.9 Type 2 diabetes mellitus without complications; I10 Essential (primary) hypertension; F17.210 Nicotine dependence, cigarettes, uncomplicated
CPT/HCPCS: 36415; 71045; 80053; 83880; 84484; 85025; 87426; 93005; 96374; 99285; J1885; U0003

== ENCOUNTER 2021-05-22 10:00 | Emergency (ER) | payer OTHER ==
[~2021-05-22] VITALS: Ht 157.5 cm; Wt 124.5 kg
[2021-05-22 10:05] VITALS: BP 115/65
== END 2021-05-22 10:37 | disposition left against medical advice (07) ==
LOC: EMS 10:00
DX: R31.9 Hematuria, unspecified (principal); Z53.21 Procedure and treatment not carried out due to patient leaving prior to being seen by health care provider

== ENCOUNTER 2023-07-27 10:29 | Emergency (ER) | payer OTHER ==
[~2023-07-27] VITALS: Ht 157.5 cm; Wt 112.7 kg
[~2023-07-27 10:29] MED LIST changes: +FLUO-177 PO; -FLUO-191 PO
[2023-07-27 10:43] VITALS: BP 125/84; PULSE 70; RESP 16; TEMP 98.3
== END 2023-07-27 13:14 | disposition left against medical advice (07) ==
LOC: EMS 10:36
DX: M54.50 Low back pain, unspecified (principal); M79.604 Pain in right leg; Z53.21 Procedure and treatment not carried out due to patient leaving prior to being seen by health care provider
CPT/HCPCS: 99281; Z7502

== ENCOUNTER 2023-11-16 09:48 | Emergency (ER) | payer OTHER ==
[~2023-11-16] VITALS: Ht 157.5 cm; Wt 108.2 kg
[2023-11-16 09:53] VITALS: TEMP 98.4
[2023-11-16] MEDS ORDERED: BUPR-345 PO (09:58)
[2023-11-16] MEDS ORDERED: SEMA1PEN3 IM (09:58)
[2023-11-16] MEDS ORDERED: INSLAN SQ (10:00)
[2023-11-16 10:11] LABS: GLUCOMETER DEV NAME(LOC) ER.6; GLUCOSE,POINT OF CARE 150 MG/DL (70-110)
[2023-11-16] MEDS ORDERED: IBUP-1554 PO (11:51)
[2023-11-16] MEDS ORDERED: HYDR-4723 PO (11:51)
[2023-11-16] MEDS ORDERED: POLY119P3 PO (11:51)
[2023-11-16] MEDS: KETOROLAC TROMETHAMINE 60 MG/2 ML VIAL IM ONE (12:06)
[2023-11-16] MEDS: ONDANSETRON HCL 4 MG/2 ML VIAL IM ONE (12:06)
[2023-11-16] MEDS: HYDROmorphone HCL 2 MG/ML SYRINGE IM ONE (12:06)
[2023-11-16 12:20] VITALS: BP 121/80; PULSE 64; RESP 18
== END 2023-11-16 12:22 | disposition home or self-care (01) ==
LOC: EMS 10:02
DX: M75.31 Calcific tendinitis of right shoulder (principal); J45.909 Unspecified asthma, uncomplicated; F32.A Depression, unspecified; E11.9 Type 2 diabetes mellitus without complications; G89.29 Other chronic pain; M54.9 Dorsalgia, unspecified; I11.0 Hypertensive heart disease with heart failure; I50.9 Heart failure, unspecified; Z87.891 Personal history of nicotine dependence; Z98.890 Other specified postprocedural states
CPT/HCPCS: 99284; 29105; 82962; 73030; 96372; J1170; J1885; J2405; 29240

== ENCOUNTER 2024-09-03 12:12 | Inpatient (IN) | payer OTHER ==
[2024-09-03] VITALS (7 sets, daily range): BP systolic 114–133; BP diastolic 74–89; PULSE 52–78; RESP 16–20; TEMP 98.1–98.5; O2SAT 93–100
[~2024-09-03] VITALS: Ht 154.9 cm; Wt 104.5 kg
[~2024-09-03 12:12] MED LIST changes: +ASCO500T20 PO; +BUPR-112 PO; +CHOL25TA4 PO; +FERR325T23 PO; -HYDR-309 PO; +INSLAN SQ; +SEMA2PEN SQ; -SENN-277 PO
[2024-09-03] MEDS: ALBUTEROL SULFATE 2.5 MG/0.5 ML NEB SOLUTION NEB ONE (14:43)
[2024-09-03] MEDS: IPRATROPIUM BROMIDE 0.5 MG/2.5 ML NEB SOLUTION NEB ONE (14:43)
[2024-09-03 14:53] LABS: B-TYPE NATRIURETIC PEPTIDE 202 pg/mL (0-100)
[2024-09-03 14:54] LABS: TROPONIN I-HIGH SENSITIVITY 13 ng/L (<51)
[2024-09-03 14:55] LABS: BASOPHILS % (AUTO) 0.3 % (0.0-2.0); EOSINOPHILS % (AUTO) 0 % (1.0-6.0); HEMATOCRIT 39.3 % (36-46); HEMOGLOBIN 12.4 g/dL (12.0-16.0); LYMPHOCYTES # (AUTO) 0.6 K/uL (1.0-4.8); LYMPHOCYTES % (AUTO) 10.7 % (22.0-44.0); MEAN CORPUSCULAR HEMOGLOBIN 25.1 pg (26.0-34.0); MEAN CORPUSCULAR HGB CONC 31.6 G/dL (31.0-37.0); MEAN CORPUSCULAR VOLUME 79 fL (80-100); MONOCYTES # (AUTO) 0.4 K/uL (0.1-1.0); MONOCYTES % (AUTO) 6.3 % (2.0-9.0); NEUTROPHILS # (AUTO) 4.8 K/uL (1.8-7.7); NEUTROPHILS % (AUTO) 82.7 % (40.0-70.0); PLATELET COUNT (AUTO) 133 K/uL (150-450); RED BLOOD CELL COUNT(AUTO) 4.97 MIL/uL (4.00-5.20); RED CELL DISTRIBUTION WIDTH 15.4 % (11.5-14.5); WHITE BLOOD COUNT (AUTO) 5.8 K/uL (4.5-11.0)
[2024-09-03 15:00] LABS: ANION GAP 7 mmol/L (8-16); CALCIUM, TOTAL 8.7 mg/dL (8.8-10.5); CARBON DIOXIDE 28 mmol/L (22-29); CHLORIDE 105 mmol/L (98-107); CREATININE 0.97 mg/dL (0.60-1.30); GLOMERULAR FILTR. RATE CALC > 60 mL/min (>60); GLUCOSE,RANDOM 131 mg/dL (70-110); POTASSIUM 3.9 mmol/L (3.5-5.1); SODIUM SERUM 140 mmol/L (136-145); UREA NITROGEN, BLOOD 19 mg/dL (7-18)
[2024-09-03] MEDS ORDERED: ALBUTEROL SULFATE 2.5 MG/0.5 ML NEB SOLUTION NEB PRN (15:00)
[2024-09-03] MEDS ORDERED: ZOLPIDEM TARTRATE 5 MG TABLET PO PRN (15:00)
[2024-09-03] MEDS ORDERED: MAGNESIUM HYDROXIDE SUSPENSION 30 ML UDCUP PO PRN (15:00)
[2024-09-03 15:24] LABS: CREATINE KINASE, TOTAL ONLY 550 U/L (26-192)
[2024-09-03] MEDS ORDERED: DEXTROSE 50%-WATER 25 GM/50 ML SYRINGE IVP PRN (15:30)
[2024-09-03] MEDS: MethylPREDNISolone SOD SUCC 125 MG/2 ML VIAL IVP ONE (16:14)
[2024-09-03] MEDS: FUROSEMIDE 20 MG/2 ML VIAL IVP ONE (16:14)
[2024-09-03] MEDS: HEPARIN SODIUM,PORCINE 5,000 UNITS/ML VIAL SQ SCH (17:05)
[2024-09-03] MEDS: INSULIN LISPRO 100 UNITS/ML SQ PRN (17:19)
[2024-09-03] MEDS: DOCUSATE SODIUM 100 MG CAPSULE PO SCH (20:14)
[2024-09-03] MEDS: OSELTAMIVIR PHOSPHATE 75 MG CAPSULE PO SCH (20:14)
[2024-09-03] MEDS: MONTELUKAST SODIUM 10 MG TABLET PO SCH (20:14)
[2024-09-03] MEDS: ACETAMINOPHEN 325 MG TABLET PO PRN (23:20)
[2024-09-04 05:26] LABS: GLUCOMETER DEV NAME(LOC) 5S.1D; GLUCOSE,POINT OF CARE 151 MG/DL (70-110)
[2024-09-04 05:26] LABS: GLUCOMETER DEV NAME(LOC) 5S.1D; GLUCOSE,POINT OF CARE 152 MG/DL (70-110)
[2024-09-04 05:54] VITALS: BP 135/83; PULSE 55; RESP 17; TEMP 98.3; O2SAT 94
[2024-09-04] MEDS: FAMOTIDINE 20 MG TABLET PO SCH (09:22)
[2024-09-04] MEDS: AZITHROMYCIN 500 MG TABLET PO SCH (09:22)
[2024-09-04] MEDS: PredniSONE 10 MG TABLET PO SCH (09:23)
[2024-09-04] MEDS ORDERED: ALBU18HF12 IH (11:04)
[2024-09-04] MEDS ORDERED: PRED-554 PO (11:05)
[2024-09-05 00:30] LABS: GLUCOMETER DEV NAME(LOC) 5N.1D; GLUCOSE,POINT OF CARE 137 MG/DL (70-110)
== END 2024-09-04 13:20 | disposition home or self-care (01) | DRG 145 ==
LOC: EMS 12:12 → EDH 15:00 → 5S 16:44
PROVIDERS: ADMIT Internal Medicine; ATTEND Internal Medicine
DX: J20.9 Acute bronchitis, unspecified (principal); E44.0 Moderate protein-calorie malnutrition; J44.0 Chronic obstructive pulmonary disease with (acute) lower respiratory infection; I11.0 Hypertensive heart disease with heart failure; J45.901 Unspecified asthma with (acute) exacerbation; J44.1 Chronic obstructive pulmonary disease with (acute) exacerbation; I50.9 Heart failure, unspecified; E11.9 Type 2 diabetes mellitus without complications; J10.1 Influenza due to other identified influenza virus with other respiratory manifestations; E66.01 Morbid (severe) obesity due to excess calories; F32.A Depression, unspecified; G89.29 Other chronic pain; Z83.3 Family history of diabetes mellitus; Z87.891 Personal history of nicotine dependence; Z98.891 History of uterine scar from previous surgery; Z68.41 Body mass index [BMI] 40.0-44.9, adult
CPT/HCPCS: 71045; 80048; 82550; 82962; 83880; 84484; 84703; 85025; 93005; 94640; 99285; J1644; J1940; J2919; 36415-L1; 36415-TC; J7512; J7613; Z7610